=== PATIENT | male | born 1960 | race Two or more races ===

== ENCOUNTER → 2020-06-23 12:02 | Outpatient (BNVA) | payer OTHER, SELFPAY | PROVIDERS: Visit Provider Urology ==

== ENCOUNTER → 2020-12-22 14:16 | Outpatient (BNVA) | payer OTHER, SELFPAY | PROVIDERS: Visit Provider Urology ==

== ENCOUNTER → 2021-06-19 13:12 | Outpatient (BNVA) | payer OTHER, SELFPAY | PROVIDERS: PCP Family Medicine; Visit Provider Urology ==

== ENCOUNTER → 2022-07-04 10:36 | Outpatient (BNVA) | payer OTHER, SELFPAY | PROVIDERS: PCP Family Medicine; Visit Provider Urology | DX: R97.20 Elevated prostate specific antigen [PSA] (principal); N40.1 Benign prostatic hyperplasia with lower urinary tract symptoms; N13.8 Other obstructive and reflux uropathy | CPT/HCPCS: 51798 ==

== ENCOUNTER 2022-09-16 05:49 | Day surgery (SDC) | payer OTHER, SELFPAY ==
--- NOTE | 2022-09-13 12:01 | HO.ANESPROP2 ---
Documented by User: Shoshana Escalante NP 09/13/22 12:03 HPI - Anesthesia Eval Consult details Narrative: 62yo M for Targeted Prostate Needle Biopsy [facility] Active Problems Active Problems: All Active Problems (Updated 06/15/21 @ 09:25 by TERELL Espinosa) BPH w urinary obs/LUTS (Acute) Elevated PSA (Acute) Past Medical History Medical History Benign prostatic hyperplasia without lower urinary tract symptoms Elevated PSA Erectile dysfunction Hyperlipidemia Weak urinary stream Surgical History Surgical History (Updated 09/16/22 @ 06:04 by Emma Perez RN) History of surgery Hx of colonoscopy Social History Social History Patient Tobacco Use Status: Never used Tobacco Use of substances other than those prescribed or required for medical reasons: No Are you DNR?: No Advance Directives: No Advance Directives Information Provided: Yes Meds Allergies Allergy/AdvReac Type Severity Reaction Status Date / Time No Known Allergies Allergy Verified 09/16/22 06:03 Home Medications Medication Instructions Recorded Confirmed Last Taken Type atorvastatin 20 mg tablet 20 mg PO DAILY 06/23/20 09/16/22 Unknown History Exam Exam Date and Time: September 13, 2022 1201 Assessment and Plan Assessment Anesthesia Assessment: Chart Reviewed Documented by User: Sharonda Garner MD 09/16/22 07:05 [facility] Past Medical History Medical History Benign prostatic hyperplasia without lower urinary tract symptoms Elevated PSA Erectile dysfunction Hyperlipidemia Weak urinary stream Family History Family history of problems with anesthesia: No Surgical History Surgical History (Updated 09/16/22 @ 06:04 by Emma Perez, RN) History of surgery Hx of colonoscopy History of Problems with Anesthesia: No Social History Social History Patient Tobacco Use Status: Never used Tobacco Use of substances other than those prescribed or required for medical reasons: No Are you DNR?: No Advance Directives: No Advance Directives Information Provided: Yes Meds Allergies Allergy/AdvReac Type Severity Reaction Status Date / Time No Known Allergies Allergy Verified 09/16/22 06:03 Home Medications Medication Instructions Recorded Confirmed Last Taken Type atorvastatin 20 mg tablet 20 mg PO DAILY 06/23/20 09/16/22 Unknown History Exam Airway Mallampati Class: II (multiple caps) TM Dist: >3cm Neck ROM: Full Heart: rrr Lungs: cta Assessment and Plan Assessment Anesthesia Assessment: Anesthesia Plan Discussed Final Anesthetic Review Family History of Problems with Anesthesia: No History of Problems with Anesthesia: No NPO: Yes ASA Class: II Final Preanesthetic Review: No Changes in Pt Med Stat, Meds/Allgs Chart Reviewed and Consent Obtained/Reviewed Patient Risk: Intermediate Procedure Risk: Intermediate Anesthetic Plan Anesthetic Plan: GA Disposition: Standard PACU
[2022-09-16 06:04] VITALS: BMI 25.5
[2022-09-16 06:16] VITALS: BP 158/91; PULSE 48; RESP 15; TEMP 36.2; O2SAT 98
[2022-09-16] MEDS: Lactated Ringers 1,000 ML 100 ML IVCONT (06:24)
--- NOTE | 2022-09-16 08:36 | MHC.SHP ---
Pre-Procedural Eval Section A Date of Service: 09/16/22 The patient is an INPATIENT: No Changes since office visit: No Cold of Flu in the past 2 weeks, No New Medical Problems, No Changes in Medication and No Patient answered all questions The History & Physical has been completed within 30 days and I have reviewed it.: Yes Section B Chief Complaint: Elevated prostate specific antigen [PSA] Allergies: Allergies Allergy/AdvReac Type Severity Reaction Status Date / Time No Known Allergies Allergy Verified 09/16/22 06:03 Plan Diagnosis/Plan: Unchanged (MMRIri fusion ultrasound biopsy) I have reviewed the history and physical and performed a pertinent physical examination on my patient. No changes have occurred unless specified. Time Spent With Patient Time: Total time managing care of this patient today ____ minutes.
--- NOTE | 2022-09-16 08:37 | W.PM.OPN ---
Operative Note Operative Note Date of Service: 09/16/22 Narrative: Preoperative diagnosis: Elevated PSA Postoperative diagnosis: Elevated PSA Procedure: 1. transrectal ultrasound measurement of prostate 2. transrectal ultrasound-guided pudendal nerve block 3. MRI-US fusion image registration performed 3. transperineal ultrasound-guided prostate biopsy 18 core including targets Surgeon: Dr. Brayden Emerson Anesthetic: Sedation plus local Indications for procedure: Elevated PSA Procedure: After informed consent was verified, the patient was brought into the procedure area. Patient identity confirmed. Perioperative antibiotics confirmed. Safety pause time out performed. Anesthesia performed per protocol Ultrasound probe was placed per rectum Focalis software and hardware platform used An ultrasound-guided pudendal nerve block was performed using 10 cc of 1% lidocaine. 8 cc was placed at the base and 2 cc of the apex. Ultrasound placement was made with grid calibration for height and prostate diameter in both the transverse and longitudinal planes. Once gride calibration was confirmed ultrasound acquisition was performed in the transverse fashion. Three dimensional ultrasound model was created. The planned needle targeting based on prior acquisition of MRI imaging was overlaid on the ultrasound images and targets confirmed through ultrasound review. Based on pre -planning evaluation 18 targets had been identified. These included 3 targets of the PI-RADS 4 prostate apex identified lesion/s. He tolerated the procedure well. Was transferred to stable condition in the PACU. Printed instructions regarding antibiotic use and common side effects such as low-grade temperature, potential infection and bleeding were given Pathology: 18 prostate biopsy
[2022-09-16 08:56] VITALS: BP 142/96; PULSE 83; RESP 16; TEMP 36.3; O2SAT 99
[2022-09-16 09:01] VITALS: BP 133/85; PULSE 78; RESP 16; O2SAT 99
[2022-09-16 09:06] VITALS: BP 136/86; PULSE 70; RESP 16; O2SAT 99
[2022-09-16 09:10] VITALS: BP 130/87; PULSE 72; RESP 16; O2SAT 99
[2022-09-16 09:25] VITALS: BP 141/86; PULSE 65; RESP 16; TEMP 36.1; O2SAT 99
== END 2022-09-16 09:57 | disposition home or self-care (01) ==
PROVIDERS: PCP Family Medicine; Visit Provider Urology
PROC: (CPT 55700; principal; 2022-09-16 07:30)
DX: R97.20 Elevated prostate specific antigen [PSA] (principal); N40.1 Benign prostatic hyperplasia with lower urinary tract symptoms; R39.12 Poor urinary stream; N13.8 Other obstructive and reflux uropathy; N52.9 Male erectile dysfunction, unspecified; E78.5 Hyperlipidemia, unspecified; Z79.899 Other long term (current) drug therapy
CPT/HCPCS: 55700; 88305; 88344; J0330; J1100; J1956; J2250; J2405; J3010

== ENCOUNTER → 2022-10-01 15:32 | Outpatient (BNVA) | payer OTHER, SELFPAY | PROVIDERS: PCP Family Medicine; Visit Provider Urology ==

== ENCOUNTER 2023-03-14 09:08 | Outpatient (AMB) | payer OTHER, SELFPAY ==
--- NOTE | 2023-03-14 09:13 | MHC.OFFVIS ---
Intake Intake Visit Reasons: 2 month follow up Intake Note: Patient is Present for Follow Up Urology Medication:Finasteride, Tamsulosin Antibiotic Allergies: None Blood Thinners: None PVR: 0ML Compliants: No current complaints Allergies No Known Allergies Allergy (Verified 03/14/23 09:16) HPI HPI Comments History of Present Illness Details Cornelio Ramesh is a very pleasant male. He is a patient of Dr Reed. He is seen for the following urologic conditions - lower urinary tract symptoms - elevated PSA - Prostate Cancer PSA 03/20 6.0 Continues with surveillance Discussed targeted therapy Prostate Cancer - low volume, low to favorable intermediate risk Discussed biopsy results Potential candidate for targeted therapy Will review for planning 2 month follow-up PSA Brother has prostate cancer in active surveillance MRI ultrasound fusion biopsy results Histologic grade: ? [place] score: 3+4=7 (C 1.5) 3+3=6 (C 1.0) ? Number cores positive: 2 Total number of cores: 15 % of tissue involved: 2% of all tissue examined Periprostatic fat inv.: Not identified Seminal vesicle inv.: Not identified Perineural inv.: Not identified LVI: Not identified Elevated PSA/Abnormal USMAN: Has been taking finasteride daily He presents for further evaluation of elevated PSA. Current management is medication with 5AR. Laboratory investigations include a free and total PSA evaluation December 2011 3.9, September 2012 4.2, September 2013 4.8, March 2014 5.6, September 2014 4.5, - 05/14 6.8, 11/11 3.6, 06/15 5.8, 11/12 4.2, 06/16 3.5, 06/17 4.5 F 13% Exosome Score 24 (5% risk is 20) - 12/15 4.0 F 0.6 15%, 06/18 4.1, 12/16 3.7, 06/19 4.2 13%, 12/17 4.5, 07/18 5.5 Imaging investigations include a transrectal ultrasound Yes Date 11/2011 Prostate Volume 30 - 05/14 - Volume 44gm, BPH nodules a prostate MRI Yes 11/16 PI-RADS 4 - 7 mm right apical lateral peripheral zone lesion Individualized Prostate Cancer Risk Calculator 5-10% high risk. A TRUS biopsy has been performed and is negative 11/2011 PSA at biopsy 5.4 Vol 30cc [facility] Medical History Erectile dysfunction Hyperlipidemia Weak urinary stream Benign prostatic hyperplasia without lower urinary tract symptoms Elevated PSA Surgical History Hx of colonoscopy History of surgery Social History Patient Tobacco Use Status: Never used Tobacco Review of Systems Const Denies chills and Denies fever(s) Card Reports no additional complaints and Denies syncope Resp Denies cough GI Denies abdominal pain and Denies heartburn Reports as per HPI and Denies change in libido Neuro Denies syncope Psych Denies change in libido Endo Denies change in libido Physical Exam Const General: cooperative, healthy appearing, comfortable and no acute distress Orientation/consciousness: patient oriented x3 HEENT Face and sinus: Yes normal facial exam Mouth: moist mucous membranes Neck Neck: Yes normal visual inspection, Yes full ROM and Yes trachea midline Chest Chest palpation & inspection: normal inspection of the chest Resp Effort & Inspection: normal respiratory effort, able to speak in complete sentences and no respiratory distress GI Inspection: Yes normal to inspection Back/Spine/Pelvis Cervical Spine: normal cervical lordosis Thoracic/Lumbar Spine: thoracic and lumbar spine normal to inspection Skin General skin exam: no rashes or lesions noted Neuro General: patient oriented x3, gait normal, tone normal and moves all extremities Extrem General: Yes normal to inspection and Yes capillary refill normal Office Procedures Post Void Residual Post Residual Void Post Void Residual (PVR): 0 [id number] Void Residual by ultrasound Results AMB Urinalysis, Automated UA Leukoctes 0 Jayy/uL Last Edit by TERELL Espinosa on 03/14/23 09:26 UA Nitrite Negative Last Edit by TERELL Espinosa on 03/14/23 09:26 UA Urobilinogen 0.2 mg/dL Last Edit by TERELL Espinosa on 03/14/23 09:26 UA Protein 15 mg/dL Last Edit by TERELL Espinosa on 03/14/23 09:26 UA pH 6.0 Last Edit by TERELL Espinosa on 03/14/23 09:26 UA Blood 0 Edouard/uL Last Edit by TERELL Espinosa on 03/14/23 09:26 UA Specific [place] 1.020 Last Edit by MONROE EspinosaA on 03/14/23 09:26 UA Ketone Negative Last Edit by Shalonda Hernandez RMA on 03/14/23 09:26 UA Bilirubin 0 mg/dL Last Edit by Shalonda Hernandez, RMA on 03/14/23 09:26 UA Glucose 0 mg/dL Last Edit by MONROE EspinosaA on 03/14/23 09:26 Results Reviewed Results Reviewed: Laboratory Last Values Urine pH (Auto) 6.0 03/14/23 09:16 Specific [place] (Auto) 1.020 03/14/23 09:16 Urine Protein (Auto) 15 mg/dL 03/14/23 09:16 Glucose (UA)(Auto) 0 mg/dL 03/14/23 09:16 Urine Ketones (Auto) Negative 03/14/23 09:16 Urine Blood (Auto) 0 Edouard/uL 03/14/23 09:16 Urine Nitrite (Auto) Negative 03/14/23 09:16 Urine Bilirubin (Auto) 0 mg/dL 03/14/23 09:16 Urine Urobilinogen (Auto) 0.2 mg/dL 03/14/23 09:16 Leukocyte Esterase (Auto) 0 Jayy/uL 03/14/23 09:16 Assessment & Plan Assessment & Plan (1) Prostate cancer: Code(s): C61 - Malignant neoplasm of prostate (2) Elevated PSA: Code(s): R97.20 - Elevated prostate specific antigen [PSA] Plan Targeted cryotherapy Risks, benefits and alternatives to therapy were discussed. These include but are not limited to infection, bleeding, damage to local organs and tissues, need for further interventions. Anesthetic risks regarding cardiac arrhythmia, blood clots, and potential mortality were discussed. The patient understands the typical recovery time and the outpatient nature of the procedure. After consideration of these risks the patient gives full informed consent and they wish to move ahead with the procedure. Orders: Orders AMB Post Void Residual by ultrasound 03/14/23 N40.1 - Benign prostatic hyperplasia with lower urinary tract symptoms, N13.8 - Other obstructive and reflux uropathy AMB Urinalysis Automated 03/14/23 Z13.9 - Encounter for screening, unspecified Patient Instructions: Imaging studies, laboratory and physical exam results were discussed and reviewed in detail. No major barriers to patient understanding were identified. An opportunity to ask questions regarding the treatment plan was provided. All questions were answered. The patient expressed understanding and agreement with the above treatment plan. The patient is aware they should contact our office by phone for worsening of their current condition or the appearance of new urologic symptoms. Compliance is encouraged with any medications and followup testing that is ordered. It is a privilege to participate in the urologic care of your patient. If you have any questions or concerns regarding treatment for the above conditions, or other urologic issues, please do not hesitate to contact me. The office telephone contact is [phone]. This note is constructed using voice recognition software. While every effort has been made to ensure accuracy drama director errors may have been included. Yours sincerely, Dr Brayden Emerson MD, GALINA [facility] - Urology Providers of Expert, Compassionate Care for the Genitourinary System Coding Level of Care Code Est Pt Level 3 (86166) Diagnoses Prostate cancer C61 Elevated PSA R97.20 CPT Codes Post Residual Void - PVR CPT Code: 63432-[id number] Void Residual by ultrasound ([id number])
== END 2023-03-14 10:12 | disposition home or self-care (01) ==
PROVIDERS: PCP Family Medicine; Visit Provider Urology
DX: C61 Malignant neoplasm of prostate (principal); R97.20 Elevated prostate specific antigen [PSA]
CPT/HCPCS: 99213

== ENCOUNTER → 2023-03-14 09:08 | Outpatient (BNVA) | payer OTHER, SELFPAY | PROVIDERS: PCP Family Medicine; Visit Provider Urology | DX: N40.1 Benign prostatic hyperplasia with lower urinary tract symptoms (principal); N13.8 Other obstructive and reflux uropathy; R97.20 Elevated prostate specific antigen [PSA]; Z80.42 Family history of malignant neoplasm of prostate; Z79.899 Other long term (current) drug therapy | CPT/HCPCS: 51798; 81003 ==

== ENCOUNTER 2023-07-11 10:53 | Outpatient (AMB) | payer OTHER, SELFPAY ==
--- NOTE | 2023-07-11 10:58 | MHC.OFFVIS ---
Intake Visit Reasons: H&P Prostate cryotherapy Intake Note: Patient is Present for H&P Prostate Cryotherapy Urology Medication: Finasteride, Tamsulosin Antibiotic Allergies: none Blood Thinners: None Allergies No Known Allergies Allergy (Verified 07/11/23 11:02) HPI Comments Details: Cornelio Ramesh is a very pleasant male. He is a patient of Dr Reed. He is seen for the following urologic conditions - lower urinary tract symptoms - elevated PSA - Prostate Cancer PSA 03/20 6.0 Continues with surveillance Discussed targeted therapy Prostate Cancer - low volume, low to favorable intermediate risk Discussed biopsy results Potential candidate for targeted therapy Will review for planning 2 month follow-up PSA Brother has prostate cancer in active surveillance 09/17 MRI ultrasound fusion biopsy results Histologic grade: ? [place] score: 3+4=7 (C 1.5) 3+3=6 (C 1.0) ? Number cores positive: 2 Total number of cores: 15 % of tissue involved: 2% of all tissue examined Periprostatic fat inv.: Not identified Seminal vesicle inv.: Not identified Perineural inv.: Not identified LVI: Not identified Elevated PSA/Abnormal USMAN: Has been taking finasteride daily He presents for further evaluation of elevated PSA. Current management is medication with 5AR. Laboratory investigations include a free and total PSA evaluation December 2011 3.9, September 2012 4.2, September 2013 4.8, March 2014 5.6, September 2014 4.5, - 05/14 6.8, 11/11 3.6, 06/15 5.8, 11/12 4.2, 06/16 3.5, 06/17 4.5 F 13% Exosome Score 24 (5% risk is 20) - 12/15 4.0 F 0.6 15%, 06/18 4.1, 12/16 3.7, 06/19 4.2 13%, 12/17 4.5, 07/18 5.5, 03/20 6.0 Imaging investigations include a transrectal ultrasound Yes Date 11/2011 Prostate Volume 30 - 17 - Volume 44gm, BPH nodules a prostate MRI Yes 11/16 PI-RADS 4 - 7 mm right apical lateral peripheral zone lesion Individualized Prostate Cancer Risk Calculator 5-10% high risk. A TRUS biopsy has been performed and is negative 11/2011 PSA at biopsy 5.4 Vol 30cc [facility] Medical History Erectile dysfunction Hyperlipidemia Weak urinary stream Benign prostatic hyperplasia without lower urinary tract symptoms Elevated PSA Surgical History Hx of colonoscopy History of surgery Social History Patient Tobacco Use Status: Never used Tobacco Review of Systems Const Denies chills and Denies fever(s) Card Reports no additional complaints and Denies syncope Resp Denies cough GI Denies abdominal pain and Denies heartburn Reports as per HPI and Denies change in libido Neuro Denies syncope Psych Denies change in libido Endo Denies change in libido Physical Exam Const General: cooperative, healthy appearing, comfortable and no acute distress Orientation/consciousness: patient oriented x3 HEENT Face and sinus: Yes normal facial exam Mouth: moist mucous membranes Neck Neck: Yes normal visual inspection, Yes full ROM and Yes trachea midline Chest Chest palpation & inspection: normal inspection of the chest Resp Effort & Inspection: normal respiratory effort, able to speak in complete sentences and no respiratory distress GI Inspection: Yes normal to inspection Back/Spine/Pelvis Cervical Spine: normal cervical lordosis Thoracic/Lumbar Spine: thoracic and lumbar spine normal to inspection Skin General skin exam: no rashes or lesions noted Neuro General: patient oriented x3, gait normal, tone normal and moves all extremities Extrem General: Yes normal to inspection and Yes capillary refill normal Assessment & Plan Assessment & Plan (1) Prostate cancer: Code(s): C61 - Malignant neoplasm of prostate Category: Medical (2) BPH w urinary obs/LUTS: Code(s): N40.1 - Benign prostatic hyperplasia with lower urinary tract symptoms; N13.8 - Other obstructive and reflux uropathy Category: Medical Plan Three-month follow-up PSA, assessment for targeted intervention Orders: Orders Prostate Specific Antigen 3 Months C61 - Malignant neoplasm of prostate Patient Instructions: Imaging studies, laboratory and physical exam results were discussed and reviewed in detail. No major barriers to patient understanding were identified. An opportunity to ask questions regarding the treatment plan was provided. All questions were answered. The patient expressed understanding and agreement with the above treatment plan. The patient is aware they should contact our office by phone for worsening of their current condition or the appearance of new urologic symptoms. Compliance is encouraged with any medications and followup testing that is ordered. It is a privilege to participate in the urologic care of your patient. If you have any questions or concerns regarding treatment for the above conditions, or other urologic issues, please do not hesitate to contact me. The office telephone contact is [phone]. This note is constructed using voice recognition software. While every effort has been made to ensure accuracy automated manufacturing instructor errors may have been included. Yours sincerely, Dr Brayden Emerson MD, [facility] - Urology Providers of Expert, Compassionate Care for the Genitourinary System Coding Level of Care Code Est Pt Level 3 (02051) Diagnoses Prostate cancer C61 BPH w urinary obs/LUTS N40.1; N13.8
== END 2023-07-11 11:42 | disposition home or self-care (01) ==
PROVIDERS: PCP Family Medicine; Visit Provider Urology
DX: C61 Malignant neoplasm of prostate (principal); N40.1 Benign prostatic hyperplasia with lower urinary tract symptoms; N13.8 Other obstructive and reflux uropathy
CPT/HCPCS: 99499

== ENCOUNTER → 2023-07-11 10:53 | Outpatient (BNVA) | payer OTHER, SELFPAY | PROVIDERS: PCP Family Medicine; Visit Provider Urology ==

== ENCOUNTER 2023-10-10 10:42 | Outpatient (AMB) | payer OTHER, SELFPAY ==
--- NOTE | 2023-10-10 10:45 | MHC.OFFVIS ---
Intake Visit Reasons: 3m/PSA(4.44) Intake Note: Patient is Present for Telephone Follow Up For Urology Med: Finasteride, Tamsulosin Antibiotic Allergy:None Blood Thinner:None Allergies No Known Allergies Allergy (Verified 07/11/23 11:02) HPI Comments Details: Cornelio Ramesh is a very pleasant male. He is a patient of Dr Reed. He is seen for the following urologic conditions - lower urinary tract symptoms - elevated PSA - Prostate Cancer Telemedicine Evaluation 15 min Consultation [employer] [place] [facility] Planning for targeted therapy Order updated MRI Prostate Cancer - low volume, low to favorable intermediate risk 09/17 Brother has prostate cancer in active surveillance 09/17 MRI ultrasound fusion biopsy results Histologic grade: ? [place] score: 3+4=7 (C 1.5) 3+3=6 (C 1.0) ? Number cores positive: 2 Total number of cores: 15 % of tissue involved: 2% of all tissue examined Periprostatic fat inv.: Not identified Seminal vesicle inv.: Not identified Perineural inv.: Not identified LVI: Not identified Elevated PSA/Abnormal USMAN: Has been taking finasteride daily He presents for further evaluation of elevated PSA. Current management is medication with 5AR. Laboratory investigations include a free and total PSA evaluation December 2011 3.9, September 2012 4.2, September 2013 4.8, March 2014 5.6, September 2014 4.5, - 05/14 6.8, 11/11 3.6, 06/15 5.8, 11/12 4.2, 06/16 3.5, 06/17 4.5 F 13% Exosome Score 24 (5% risk is 20) - 12/15 4.0 F 0.6 15%, 06/18 4.1, 12/16 3.7, 06/19 4.2 13%, 12/17 4.5, 07/18 5.5, 03/20 6.0 Imaging investigations include a transrectal ultrasound Yes Date 11/2011 Prostate Volume 30 - 05/14 - Volume 44gm, BPH nodules a prostate MRI Yes 11/16 PI-RADS 4 - 7 mm right apical lateral peripheral zone lesion Individualized Prostate Cancer Risk Calculator 5-10% high risk. A TRUS biopsy has been performed and is negative 11/2011 PSA at biopsy 5.4 Vol 30cc [facility] Medical History Erectile dysfunction Hyperlipidemia Weak urinary stream Benign prostatic hyperplasia without lower urinary tract symptoms Elevated PSA Surgical History Hx of colonoscopy History of surgery Social History Patient Tobacco Use Status: Never used Tobacco Review of Systems Const All systems reviewed & are unremarkable except as noted in HPI and below Reports no additional complaints Resp Reports no additional complaints GI Reports no additional complaints Reports as per HPI Musc Reports no additional complaints Physical Exam Telemedicine evaluation Appropriate responses Regular breathing rate and rhythm HEENT Head: Yes normal to inspection Ears: hearing grossly normal bilaterally Eyes General: appearance normal, both eyes and all related structures Neck Neck: Yes normal visual inspection Chest Chest palpation & inspection: normal inspection of the chest Resp Effort & Inspection: normal respiratory effort and able to speak in complete sentences Telehealth Telehealth Telehealth Platform: [employer] Location of provider rendering services: practice address Location of patient: address on file Patient Identification confirmed using: Name, : Yes Telehealth method: video Patient verbally consented to treatment: Yes Patient verbally consented to billing insurance company: Yes Patient informed of any privacy concerns related to visit: Yes Minutes spent on Phone/Video with Pt.: 15 Assessment & Plan Assessment & Plan (1) Prostate cancer: Code(s): C61 - Malignant neoplasm of prostate Category: Medical (2) Elevated PSA: Code(s): R97.20 - Elevated prostate specific antigen [PSA] Category: Medical Plan Six-month follow-up PSA Patient Instructions: Imaging studies, laboratory and physical exam results were discussed and reviewed in detail. No major barriers to patient understanding were identified. An opportunity to ask questions regarding the treatment plan was provided. All questions were answered. The patient expressed understanding and agreement with the above treatment plan. The patient is aware they should contact our office by phone for worsening of their current condition or the appearance of new urologic symptoms. Compliance is encouraged with any medications and followup testing that is ordered. It is a privilege to participate in the urologic care of your patient. If you have any questions or concerns regarding treatment for the above conditions, or other urologic issues, please do not hesitate to contact me. The office telephone contact is [phone]. This note is constructed using voice recognition software. While every effort has been made to ensure accuracy two way radio technician errors may have been included. Yours sincerely, Dr Brayden Emerson MD, [facility] - Urology Providers of Expert, Compassionate Care for the Genitourinary System Coding Level of Care Code Tele Est Pt Level 3 (57041) Diagnoses Prostate cancer C61 Elevated PSA R97.20
== END 2023-10-10 16:30 | disposition left against medical advice (07) ==
LOC: HO.HUSH 10:42
PROVIDERS: PCP Family Medicine; Visit Provider Urology
DX: C61 Malignant neoplasm of prostate (principal); R97.20 Elevated prostate specific antigen [PSA]
CPT/HCPCS: 99499

== ENCOUNTER → 2023-10-10 10:42 | Outpatient (BNVA) | payer OTHER, SELFPAY | PROVIDERS: PCP Family Medicine; Visit Provider Urology ==

== ENCOUNTER 2023-10-21 14:40 | Outpatient (AMB) | payer OTHER, SELFPAY ==
--- NOTE | 2023-10-21 14:41 | A.OFFVIS_ITS ---
Intake Visit Reasons: Prostate cancer- follow up Intake Note: Patient is Present for Telephone Follow Up Urology Med:Tamsulosin, Finasteride Antibiotic Allergy:None Blood Thinner:None Allergies No Known Allergies Allergy (Verified 07/11/23 11:02) Medication List - Last Reconciled 10/21/23 by Brayden Emerson MD atorvastatin 20 mg PO DAILY finasteride 5 mg PO DAILY 90 days tamsulosin 0.4 mg PO BEDTIME 90 days HPI Comments Details: Cornelio Ramesh is a very pleasant male. He is a patient of Dr Reed. He is seen for the following urologic conditions - lower urinary tract symptoms - elevated PSA - Prostate Cancer Telemedicine Evaluation 15 min Consultation [employer] [place]iley Video Planning for targeted therapy Needs updated prostate MRI Prostate Cancer - low volume, low to favorable intermediate risk 09/17 Brother has prostate cancer in active surveillance 09/17 MRI ultrasound fusion biopsy results Histologic grade: ? [place] score: 3+4=7 (C 1.5) 3+3=6 (C 1.0) ? Number cores positive: 2 Total number of cores: 15 % of tissue involved: 2% of all tissue examined Periprostatic fat inv.: Not identified Seminal vesicle inv.: Not identified Perineural inv.: Not identified LVI: Not identified Elevated PSA/Abnormal USMAN: Has been taking finasteride daily He presents for further evaluation of elevated PSA. Current management is medication with 5AR. Laboratory investigations include a free and total PSA evaluation December 2011 3.9, September 2012 4.2, September 2013 4.8, March 2014 5.6, September 2014 4.5, - 05/14 6.8, 11/11 3.6, 06/15 5.8, 11/12 4.2, 06/16 3.5, 06/17 4.5 F 13% Exosome Score 24 (5% risk is 20) - 12/15 4.0 F 0.6 15%, 06/18 4.1, 12/16 3.7, 06/19 4.2 13%, 12/17 4.5, 07/18 5.5, 03/20 6.0 Imaging investigations include a transrectal ultrasound Yes Date 11/2011 Prostate Volume 30 - 05/14 - Volume 44gm, BPH nodules a prostate MRI Yes 11/16 PI-RADS 4 - 7 mm right apical lateral peripheral zone lesion Individualized Prostate Cancer Risk Calculator 5-10% high risk. A TRUS biopsy has been performed and is negative 11/2011 PSA at biopsy 5.4 Vol 30cc [facility] Medical History Erectile dysfunction Hyperlipidemia Weak urinary stream Benign prostatic hyperplasia without lower urinary tract symptoms Elevated PSA Surgical History Hx of colonoscopy History of surgery Social History Patient Tobacco Use Status: Never used Tobacco Review of Systems Const All systems reviewed & are unremarkable except as noted in HPI and below Reports no additional complaints Resp Reports no additional complaints GI Reports no additional complaints Reports as per HPI Musc Reports no additional complaints Physical Exam Telemedicine evaluation Appropriate responses Regular breathing rate and rhythm HEENT Head: Yes normal to inspection Ears: hearing grossly normal bilaterally Eyes General: appearance normal, both eyes and all related structures Neck Neck: Yes normal visual inspection Chest Chest palpation & inspection: normal inspection of the chest Resp Effort & Inspection: normal respiratory effort and able to speak in complete sentences Telehealth Telehealth Telehealth Platform: [employer] Location of provider rendering services: practice address Location of patient: address on file Patient Identification confirmed using: Name, : Yes Telehealth method: video Patient verbally consented to treatment: Yes Patient verbally consented to billing insurance company: Yes Patient informed of any privacy concerns related to visit: Yes Minutes spent on Phone/Video with Pt.: 15 Assessment & Plan Assessment & Plan (1) Prostate cancer: Code(s): C61 - Malignant neoplasm of prostate Category: Medical Plan Repeat prostate MRI Plan prostate intervention Orders: Orders MR pelvis wo/w con Today C61 - Malignant neoplasm of prostate Patient Instructions: Imaging studies, laboratory and physical exam results were discussed and reviewed in detail. No major barriers to patient understanding were identified. An opportunity to ask questions regarding the treatment plan was provided. All questions were answered. The patient expressed understanding and agreement with the above treatment plan. The patient is aware they should contact our office by phone for worsening of their current condition or the appearance of new urologic symptoms. Compliance is encouraged with any medications and followup testing that is ordered. It is a privilege to participate in the urologic care of your patient. If you have any questions or concerns regarding treatment for the above conditions, or other urologic issues, please do not hesitate to contact me. The office telephone contact is [phone]. This note is constructed using voice recognition software. While every effort has been made to ensure accuracy hi teacher errors may have been included. Yours sincerely, Dr Brayden Emerson MD, [facility] - Urology Providers of Expert, Compassionate Care for the Genitourinary System Coding Level of Care Code Tele Est Pt Level 3 (94978) Diagnoses Prostate cancer C61
== END 2023-10-21 15:09 | disposition home or self-care (01) ==
LOC: HO.HUSH 14:40
PROVIDERS: PCP Family Medicine; Visit Provider Urology
DX: C61 Malignant neoplasm of prostate (principal)
CPT/HCPCS: 99213

== ENCOUNTER → 2023-10-21 14:40 | Outpatient (BNVA) | payer OTHER, SELFPAY | PROVIDERS: PCP Family Medicine; Visit Provider Urology ==

== ENCOUNTER 2024-02-05 13:07 | Outpatient (AMB) | payer OTHER, SELFPAY ==
--- NOTE | 2024-02-05 13:08 | A.OFFVIS_ITS ---
Intake Visit Reasons: Discuss plan after surgical denial Intake Note: Patient is Present for Telephone Follow Up Discussion on Plan of care after Insurance denial of surgery Urology Med: Tamsulosin, Finasteride Antibiotic Allergy: None Blood Thinner: None [facility] [employer] Experience Strategy Required: No Accompanied by: Self / Same As Patient Allergies No Known Allergies Allergy (Verified 02/05/24 13:11) HPI Comments Details: Cornelio Ramesh is a very pleasant male. He is a patient of Dr Reed. He is seen for the following urologic conditions - lower urinary tract symptoms - elevated PSA - Prostate Cancer Telemedicine Evaluation 15 min Consultation [employer] Hailey Video 11/18 prostate MRI 9 mm right apical lateral peripheral zone lesion PI-RADS 4 Prostate Cancer - low volume, low to favorable intermediate risk 09/17 Brother has prostate cancer in active surveillance 09/17 MRI ultrasound fusion biopsy results Histologic grade: ? [place] score: 3+4=7 (C 1.5) 3+3=6 (C 1.0) ? Number cores positive: 2 Total number of cores: 15 % of tissue involved: 2% of all tissue examined Periprostatic fat inv.: Not identified Seminal vesicle inv.: Not identified Perineural inv.: Not identified LVI: Not identified Elevated PSA/Abnormal USMAN: Has been taking finasteride daily He presents for further evaluation of elevated PSA. Current management is medication with 5AR. Laboratory investigations include a free and total PSA evaluation December 2011 3.9, September 2012 4.2, September 2013 4.8, March 2014 5.6, September 2014 4.5, - 05/14 6.8, 11/11 3.6, 06/15 5.8, 11/12 4.2, 06/16 3.5, 06/17 4.5 F 13% Exosome Score 24 (5% risk is 20) - 12/15 4.0 F 0.6 15%, 06/18 4.1, 12/16 3.7, 06/19 4.2 13%, 12/17 4.5, 07/18 5.5, 03/20 6.0 Imaging investigations include a transrectal ultrasound Yes Date 11/2011 Prostate Volume 30 - 05/14 - Volume 44gm, BPH nodules a prostate MRI Yes 11/16 PI-RADS 4 - 7 mm right apical lateral peripheral zone lesion Individualized Prostate Cancer Risk Calculator 5-10% high risk. A TRUS biopsy has been performed and is negative 11/2011 PSA at biopsy 5.4 Vol 30cc [facility] Medical History Erectile dysfunction Hyperlipidemia Weak urinary stream Benign prostatic hyperplasia without lower urinary tract symptoms Elevated PSA Surgical History Hx of colonoscopy History of surgery Social History Patient Tobacco Use Status: Never used Tobacco Review of Systems Const All systems reviewed & are unremarkable except as noted in HPI and below Reports no additional complaints Resp Reports no additional complaints GI Reports no additional complaints Reports as per HPI Musc Reports no additional complaints Physical Exam Telemedicine evaluation Appropriate responses Regular breathing rate and rhythm HEENT Head: Yes normal to inspection Ears: hearing grossly normal bilaterally Eyes General: appearance normal, both eyes and all related structures Neck Neck: Yes normal visual inspection Chest Chest palpation & inspection: normal inspection of the chest Resp Effort & Inspection: normal respiratory effort and able to speak in complete sentences Telehealth Telehealth Telehealth Platform: [employer] Location of provider rendering services: practice address Location of patient: address on file Patient Identification confirmed using: Name, : Yes Telehealth method: video Patient verbally consented to treatment: Yes Patient verbally consented to billing insurance company: Yes Patient informed of any privacy concerns related to visit: Yes Minutes spent on Phone/Video with Pt.: 15 Assessment & Plan Assessment & Plan (1) Prostate cancer: Code(s): C61 - Malignant neoplasm of prostate Category: Medical (2) BPH w urinary obs/LUTS: Code(s): N40.1 - Benign prostatic hyperplasia with lower urinary tract symptoms; N13.8 - Other obstructive and reflux uropathy Category: Medical Plan Six-month follow-up labs Patient Instructions: Imaging studies, laboratory and physical exam results were discussed and reviewed in detail. No major barriers to patient understanding were identified. An opportunity to ask questions regarding the treatment plan was provided. All questions were answered. The patient expressed understanding and agreement with the above treatment plan. The patient is aware they should contact our office by phone for worsening of their current condition or the appearance of new urologic symptoms. Compliance is encouraged with any medications and followup testing that is ordered. It is a privilege to participate in the urologic care of your patient. If you have any questions or concerns regarding treatment for the above conditions, or other urologic issues, please do not hesitate to contact me. The office telephone contact is [phone]. This note is constructed using voice recognition software. While every effort has been made to ensure accuracy bottling supervisor errors may have been included. Yours sincerely, Dr Brayden Emerson MD, [facility] - Urology Providers of Expert, Compassionate Care for the Genitourinary System Coding Level of Care Code Tele Est Pt Level 3 (24075) Diagnoses Prostate cancer C61 BPH w urinary obs/LUTS N40.1; N13.8
== END 2024-02-05 13:46 | disposition home or self-care (01) ==
LOC: HO.HUSH 13:07
PROVIDERS: PCP Family Medicine; Visit Provider Urology
DX: C61 Malignant neoplasm of prostate (principal); N40.1 Benign prostatic hyperplasia with lower urinary tract symptoms; N13.8 Other obstructive and reflux uropathy
CPT/HCPCS: 99213

== ENCOUNTER → 2024-02-05 13:07 | Outpatient (BNVA) | payer OTHER, SELFPAY | PROVIDERS: PCP Family Medicine; Visit Provider Urology ==

== ENCOUNTER 2024-08-04 11:37 | Outpatient (AMB) | payer OTHER, SELFPAY ==
--- NOTE | 2024-08-04 11:44 | A.OFFVIS_ITS ---
Intake Visit Reasons: 6m/PSA(PSA?) Intake Note: Patient is present for 6M/PSA Urology Medication:TAMSULOSIN,FINASTERIDE Antibiotic Allergy:NONE Blood Thinner:NONE Awning Hanger Helper Required: No Allergies No Known Allergies Allergy (Verified 08/04/24 11:44) HPI Comments Details: Cornelio Ramesh is a very pleasant male. He is a patient of Dr Reed. He is seen for the following urologic conditions - lower urinary tract symptoms - elevated PSA - Prostate Cancer PSA 7.7 was on every other month finasteride He start daily finasteride 11/18 prostate MRI 9 mm right apical lateral peripheral zone lesion PI-RADS 4 Prostate Cancer - low volume, low to favorable intermediate risk 09/17 Brother has prostate cancer in active surveillance 09/17 MRI ultrasound fusion biopsy results Histologic grade: ? [place] score: 3+4=7 (C 1.5) 3+3=6 (C 1.0) ? Number cores positive: 2 Total number of cores: 15 % of tissue involved: 2% of all tissue examined Periprostatic fat inv.: Not identified Seminal vesicle inv.: Not identified Perineural inv.: Not identified LVI: Not identified Elevated PSA/Abnormal USMAN: Has been taking finasteride daily He presents for further evaluation of elevated PSA. Current management is medication with 5AR. Laboratory investigations include a free and total PSA evaluation Dec 3.9, September 2012 4.2, September 2013 4.8, March 2014 5.6, September 2014 4.5, - 05/14 6.8, 11/11 3.6, 06/15 5.8, 11/12 4.2, 06/16 3.5, 06/17 4.5 F 13% Exosome Score 24 (5% risk is 20) - 12/15 4.0 F 0.6 15%, 06/18 4.1, 12/16 3.7, 06/19 4.2 13%, 12/17 4.5, 07/18 5.5, 03/20 6.0 Imaging investigations include a transrectal ultrasound Yes Date 11/2011 Prostate Volume 30 - 05/14 - Volume 44gm, BPH nodules a prostate MRI Yes 11/16 PI-RADS 4 - 7 mm right apical lateral peripheral zone lesion Individualized Prostate Cancer Risk Calculator 5-10% high risk. A TRUS biopsy has been performed and is negative 11/2011 PSA at biopsy 5.4 Vol 30cc [facility] Medical History Erectile dysfunction Hyperlipidemia Weak urinary stream Benign prostatic hyperplasia without lower urinary tract symptoms Elevated PSA Surgical History Hx of colonoscopy History of surgery Social History Patient Tobacco Use Status: Never used Tobacco Assessment & Plan Assessment & Plan Orders: Orders AMB Urinalysis Automated Today Z13.9 - Encounter for screening, unspecified Prostate Specific Antigen 4 Months C61 - Malignant neoplasm of prostate Coding
== END 2024-08-04 12:20 | disposition home or self-care (01) ==
LOC: HO.HUSH 11:39
PROVIDERS: PCP Family Medicine; Visit Provider Urology
DX: Z13.9 Encounter for screening, unspecified (principal)

== ENCOUNTER → 2024-08-04 11:37 | Outpatient (BNVA) | payer OTHER, SELFPAY | PROVIDERS: PCP Family Medicine; Visit Provider Urology | DX: N40.1 Benign prostatic hyperplasia with lower urinary tract symptoms (principal); N13.8 Other obstructive and reflux uropathy; C61 Malignant neoplasm of prostate | CPT/HCPCS: 81003 ==

== ENCOUNTER 2025-01-06 11:02 | Outpatient (AMB) | payer OTHER, SELFPAY ==
--- NOTE | 2025-01-06 11:36 | MHC.OFFVIS ---
Intake Visit Reasons: follow up/PSA Intake Note: patient presents today for: follow up/PSA urology medications: finsateride, tamsulosin blood thinners: none labs done 12/28/24: PSA 7.3 today's PVR: 28mls Electrolytic De Scaler Required: No Accompanied by: Self / Same As Patient Allergies No Known Allergies Allergy (Verified 01/06/25 11:37) HPI Comments Details: Cornelio Ramesh is a very pleasant male. He is a patient of Dr Reed. He is seen for the following urologic conditions - lower urinary tract symptoms - elevated PSA - Prostate Cancer PSA 7.3 11/18 prostate MRI 9 mm right apical lateral peripheral zone lesion PI-RADS 4 Prostate Cancer - low volume, low to favorable intermediate risk 09/17 Brother has prostate cancer in active surveillance 09/17 MRI ultrasound fusion biopsy results Histologic grade: ? [place] score: 3+4=7 (C 1.5) 3+3=6 (C 1.0) ? Number cores positive: 2 Total number of cores: 15 % of tissue involved: 2% of all tissue examined Periprostatic fat inv.: Not identified Seminal vesicle inv.: Not identified Perineural inv.: Not identified LVI: Not identified Elevated PSA/Abnormal USMAN: Has been taking finasteride daily He presents for further evaluation of elevated PSA. Current management is medication with 5AR. Laboratory investigations include a free and total PSA evaluation December 2011 3.9, September 2012 4.2, September 2013 4.8, March 2014 5.6, September 2014 4.5, - 05/14 6.8, 11/11 3.6, 06/15 5.8, 11/12 4.2, 06/16 3.5, 06/17 4.5 F 13% Exosome Score 24 (5% risk is 20) - 12/15 4.0 F 0.6 15%, 06/18 4.1, 12/16 3.7, 06/19 4.2 13%, 12/17 4.5, 07/18 5.5, 03/20 6.0 Imaging investigations include a transrectal ultrasound Yes Date 11/2011 Prostate Volume 30 - 05/14 - Volume 44gm, BPH nodules a prostate MRI Yes 11/16 PI-RADS 4 - 7 mm right apical lateral peripheral zone lesion Individualized Prostate Cancer Risk Calculator 5-10% high risk. A TRUS biopsy has been performed and is negative 11/2011 PSA at biopsy 5.4 Vol 30cc [facility] Medical History Erectile dysfunction Hyperlipidemia Weak urinary stream Benign prostatic hyperplasia without lower urinary tract symptoms Elevated PSA Surgical History Hx of colonoscopy History of surgery Social History Patient Tobacco Use Status: Never used Tobacco Office Procedures Post Void Residual Post Residual Void Post Void Residual (PVR): 28 [id number] Void Residual by ultrasound Results AMB Urinalysis, Automated UA Leukoctes 0 Jayy/uL Last Edit by GE Iraheta on 01/06/25 15:52 UA Nitrite Negative Last Edit by GE Iraheta on 01/06/25 15:52 UA Urobilinogen 0.2 mg/dL Last Edit by GE Iraheta on 01/06/25 15:52 UA Protein 0 mg/dL Last Edit by GE Iraheta on 01/06/25 15:52 UA pH 6.5 Last Edit by GE Iraheta on 01/06/25 15:52 UA Blood 0 Edouard/uL Last Edit by GE Iraheta on 01/06/25 15:52 UA Specific [place] 1.015 Last Edit by GE Iraheta on 01/06/25 15:52 UA Ketone Negative Last Edit by GE Iraheta on 01/06/25 15:52 UA Bilirubin 0 mg/dL Last Edit by GE Iraheta on 01/06/25 15:52 UA Glucose 0 mg/dL Last Edit by GE Iraheta on 01/06/25 15:52 Assessment & Plan Assessment & Plan Orders: Orders PSA,Total (Free>4and<10) 4 Months C61 - Malignant neoplasm of prostate AMB Post Void Residual by ultrasound Today N13.8 - Other obstructive and reflux uropathy, N40.1 - Benign prostatic hyperplasia with lower urinary tract symptoms AMB Urinalysis Automated Today Z13.9 - Encounter for screening, unspecified Coding CPT Codes Post Residual Void - PVR CPT Code: 50989-[id number] Void Residual by ultrasound ([id number])
== END 2025-01-06 12:22 | disposition home or self-care (01) ==
LOC: HO.HUSH 11:03
PROVIDERS: PCP Family Medicine; Visit Provider Urology
DX: Z13.9 Encounter for screening, unspecified (principal)

== ENCOUNTER → 2025-01-06 11:02 | Outpatient (BNVA) | payer OTHER, SELFPAY | PROVIDERS: PCP Family Medicine; Visit Provider Urology | DX: N40.1 Benign prostatic hyperplasia with lower urinary tract symptoms (principal); N13.8 Other obstructive and reflux uropathy; R97.20 Elevated prostate specific antigen [PSA]; C61 Malignant neoplasm of prostate; Z13.9 Encounter for screening, unspecified | CPT/HCPCS: 51798; 81003 ==

== ENCOUNTER 2025-03-14 11:18 | Outpatient (AMB) | payer MEDICARE, SELFPAY ==
--- NOTE | 2025-03-14 11:28 | MHC.OFFWIV ---
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 Itchy, red rash on area where tick bite is. Patient Tobacco Use Status: Never used Tobacco Allergies No Known Allergies Allergy (Verified 03/14/25 11:28) Do you need a note to return to daycare/school/sports/work: No HPI HPI Comments History of Present Illness Details History - The patient is a 64-year-old male presenting with concerns following a tick bite. - The patient experienced a tick bite three weeks ago, with the tick not engorged upon removal. - He states that he thinks that the tick was on for 3 days. - The area initially cleared but later became itchy, prompting self-treatment with amoxicillin, which reduced the itching. - The patient was using Amoxicillin from a family member, 3 times a day since Friday. - The patient denies systemic symptoms such as fever or joint pain. - Reports elevated blood pressure, with a recent high reading of 194 mmHg, attributed to anxiety and pain from a finger laceration. - He denies CP, SOB, fatigue, myalgias, or other rashes. Physical Exam General: Cooperative, healthy appearing, comfortable, no acute distress and well developed Orientation: Patient oriented x3 Limitations: No limitations Head: Normal to inspection Respiratory: Normal respiratory effort and able to speak in complete sentences. Cardiac: RRR. No m/r/g noted. Skin: Area of erythema noted on the abdomen. No induration noted. No discharge or fluctuance noted. No streaking noted. Neuro: Patient oriented x3 Patient was informed and verbally consented to the use of an ambient scribe for clinic note documentation during this visit. [facility] Medical History Erectile dysfunction Hyperlipidemia Weak urinary stream Benign prostatic hyperplasia without lower urinary tract symptoms Elevated PSA Surgical History Hx of colonoscopy History of surgery Social History Patient Tobacco Use Status: Never used Tobacco Review of Systems Const All systems reviewed & are unremarkable except as noted in HPI and below Physical Exam Vital Signs: Last Vital Signs Temp 97.8 F 03/14/25 11:29 Pulse 71 03/14/25 11:29 BP 172/100 H 03/14/25 11:29 Pulse Ox 97 03/14/25 11:29 Oxygen Delivery Method Room Air 03/14/25 11:29 BMI result Body Mass Index 26.3 Assessment & Plan Assessment & Plan (1) Tick bite: Code(s): W57.XXXA - Bitten or stung by nonvenomous insect and other nonvenomous arthropods, initial encounter Qualifiers: Encounter type: initial encounter Site of tick bite: abdominal wall Qualified Code(s): S30.861A - Insect bite (nonvenomous) of abdominal wall, initial encounter; W57.XXXA - Bitten or stung by nonvenomous insect and other nonvenomous arthropods, initial encounter Plan Most likely cellulitis from a tick or insect bite Does not look like a Bullseye rash Plan - Start doxycycline for suspected cellulitis post-tick bite, as the patient is not allergic. - Monitor for Lyme disease symptoms, including bullseye rash and joint pain. - Regularly check blood pressure and address anxiety and pain as contributing factors. - tylenol or motrin as needed - offered him a Lyme titer and he declined at this time - watch for signs of infection such as fever, discharge, warmth, etc - follow up with PCP Medications: New doxycycline hyclate 100 mg PO BID PRN 20 tabs 0RF lyme disease 10 days Coding Level of Care Code Est Pt Level 3 (50741) Diagnoses Tick bite of abdominal wall, initial encounter S30.861A; W57.XXXA Encounter type: initial encounter Site of tick bite: abdominal wall
[2025-03-14 11:29] VITALS: BP 172/100; PULSE 71; TEMP 36.6; O2SAT 97; BMI 26.3
== END 2025-03-14 12:38 | disposition home or self-care (01) ==
PROVIDERS: PCP Family Medicine; Visit Provider Physician Assistant Medical
DX: S30.861A Insect bite (nonvenomous) of abdominal wall, initial encounter (principal); W57.XXXA Bitten or stung by nonvenomous insect and other nonvenomous arthropods, initial encounter

== ENCOUNTER → 2025-03-14 11:18 | Outpatient (BNVA) | payer MEDICARE, SELFPAY | PROVIDERS: PCP Family Medicine; Visit Provider Physician Assistant Medical | DX: S30.861A Insect bite (nonvenomous) of abdominal wall, initial encounter (principal); W57.XXXA Bitten or stung by nonvenomous insect and other nonvenomous arthropods, initial encounter; Y93.9 Activity, unspecified; Y92.9 Unspecified place or not applicable; Y99.9 Unspecified external cause status | CPT/HCPCS: 99212 ==

== ENCOUNTER 2025-04-07 10:16 | Outpatient (AMB) | payer MEDICARE, SELFPAY ==
--- NOTE | 2025-04-07 10:25 | A.OFFPC_ITS ---
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 Saw Dr Ricketts at [facility] Intake Coordinator Required: No Allergies No Known Allergies Allergy (Verified 04/07/25 10:26) Medication List - Last Reconciled 04/07/25 by Faith Olivier PA-C atorvastatin 20 mg PO DAILY finasteride 5 mg PO DAILY 90 days metoprolol succinate ER 25 mg PO DAILY tamsulosin 0.4 mg PO BEDTIME 90 days Tobacco use date assessed: 04/07/25 Fall risk assessment: 1 Fall in past year Last assessed Fall Risk: 04/07/25 Dental Screening Dental Screen Date: 04/07/25 Did you have a dental visit in the last 12 months?: Yes Did you have a dental problem in the last 6 months where you did not have access to dental care?: No Was dental information given to patient?: Patient has dentist HPI RETAIL SELLING SPECIALIST CPE/colonoscopy HPI Details Pt is a 65 y/o male who presents today to on license of [facility] care. He is transferring from [facility] [employer]. He has a significant past medical history of prostate cancer and hyperlipidemia. CV: bp is elevated today, it has been running high at home. He has been feeling a pounding in the chest that will last for < 30 seconds. It does not feel like it is skipping beats but is beating hard. It does cause some discomfort. No sob, dizzines, leg swelling. No exertional sx. He has noted it 3-4 x a day x the last few months. Becoming more frequent. Father had 2 MIs (one at the age of 30 and then later). ID: Did have a couple recent tick bites. Was treated with doxycycline. No symptoms. Uro: Follows with urology here. Up-to-date on office visits Colonoscopy: Overdue by 2 years. History of colon polyps and was supposed to have his colonoscopy repeated 2 years ago. He was told to follow up every 3 years. No blood in the stool. No abdominal pain [facility] Medical History Erectile dysfunction Hyperlipidemia Weak urinary stream Benign prostatic hyperplasia without lower urinary tract symptoms Elevated PSA Surgical History Hx of colonoscopy History of surgery Family History (Updated 04/07/25 @ 10:37 by Keyla Jack CMA) Father HTN (hypertension) High cholesterol Social History Housing: House Patient Tobacco Use Status: Never used Tobacco e-Cigarette/Vaping Use: Never Used Second Hand Smoke Exposure: No service: Yes Current occupational status: retired Cognitive needs: No Hearing needs: No Vision needs: No Questionnaire PHQ-9 Over the last 2 weeks, how often have you been bothered by any of the following problems? 1. Little interest or pleasure in doing things: not at all 2. Feeling down, depressed, or hopeless: not at all 3. Trouble falling or staying asleep, or sleeping too much: not at all 4. Feeling tired or having little energy: not at all 5. Poor appetite or overeating: not at all 6. Feeling bad about yourself - or that you are a failure or have let yourself or your family down: not at all 7. Trouble concentrating on things, such as reading the newspaper or watching television: not at all 8. Moving or speaking so slowly that other people could have noticed. Or the opposite - being so fidgety or restless that you have been moving around a lot more than usual: not at all 9. Thoughts that you would be better off or of hurting yourself in some way: not at all Total score: 0 Depression Screening Interpretation: Negative Depression Screening Done: Yes 95934 - PHQ-9 Billing: Yes Source: Developed by Drs. Hay Varela, Leonora Parsons, Viktor Giraldo and colleagues, with an educational sebastian from [employer]. Thrive Questionnaire Date Thrive assessed: 03/31/25 I am a: Patient What is your living situation today?: I have a steady place to live Within the past 12 months, did the food you bought not last and you didn't have the money to get more?: Never true Within the past 12 months, did you worry whether your food would run out before you got money to buy more?: Never true Do you have trouble paying for medicines?: No Do you have trouble getting transportation to medical appointments?: No Do you have trouble paying your heating and electricity bill?: No Do you have trouble taking care of your child, family member or friend?: No Do you have trouble with day-to-day activities such as bathing, preparing meals, shopping, managing finances, etc.?: No Are you currently unemployed and looking for a job?: No Are you interested in more education?: No Please select the resources that you would like help with: None Currently or been in a relationship where the following occur: No concerns reported THRIVE Score: 0 AUDIT C Alcohol Use Questionnaire (AUDIT-C) 1. How often do you have a drink containing alcohol?: Monthly or less 2. How many drinks containing alcohol do you have on a typical day when you are drinking?: 1 or 2 3. How often do you have six or more drinks on one occasion?: Never Total Score: 1 ALEXIS-7 AMB Questionnaire ALEXIS-7 Feeling nervous, anxious, or on edge: 0 = Not at all Not being able to stop or control worryin = Not at all Worrying too much about different things: 0 = Not at all Trouble relaxin = Not at all Being so restless that it is hard to sit still: 0 = Not at all Becoming easily annoyed or irritable: 0 = Not at all Feeling afraid as if something awful might happen: 0 = Not at all Total ALEXIS-7 score (0-4 normal; 5-9 mild; 10-14 moderate; 15-21 severe): 0 Source: Developed by Drs. Hay Varela, Leonora Parsons, Viktor Giraldo and colleagues, with an educational sebastian from [employer]. ALEXIS-7 Assessment Billing ALEXIS-7 Assessment Tool: ALEXIS-7 Assessment 86909 Physical exam (Primary Care) Vital Signs: Last Vital Signs Temp 98 F 04/07/25 10:26 Pulse 79 04/07/25 10:26 Resp 14 04/07/25 10:26 BP 152/84 H 04/07/25 10:43 Pulse Ox 97 04/07/25 10:26 Oxygen Delivery Method Room Air 04/07/25 10:26 BMI result Body Mass Index 27.0 Tobacco/Smoking Status: Tobacco use Status Tobacco use date assessed 04/07/25 04/07/25 10:32 Patient Tobacco Use Status Never used Tobacco 04/07/25 10:25 e-Cigarette/Vaping Use Never Used 04/07/25 10:32 PHQ-9: PHQ-9 Score PHQ-9: Total score 0 04/07/25 10:47 Depression Screening Interpretation: Negative Thrive Assessment: Date of Thrive Assessment Date Thrive assessed 03/31/25 04/07/25 10:25 Currently or been in a relationship where the following occur: No concerns reported Const Orientation/consciousness: patient oriented x3 HENMT Ears: hearing grossly normal bilaterally Neck Thyroid: Thyroid normal Lymphatic: no lymphadenopathy noted Resp Auscultation: clear to auscultation bilaterally Cardio Rate: regular rate Rhythm: regular rhythm Heart sounds: S1 normal heart sound present and S2 normal heart sound present GI Inspection: Yes normal to inspection Palpation (GI): Soft to palpation and Other GI palpation findings present (nontender, no cva tenderness) Auscultation: normoactive bowel sounds Rectal Exam - Male: Yes deferred Skin General skin exam: no rashes or lesions noted Neuro General: patient oriented x3, gait normal and no focal motor deficits Office Procedures EKG Details: EKG today in office is sinus bradycardia at a rate of 58 beats per minute with nonspecific STT wave abnormalities. No prior study to compare.? LVH [id number], Complete Coding Level of Care Code New Pt Level 4 (20350) Add On Problem Visit Only Diagnoses HTN (hypertension) I10 Chest discomfort R07.89 Palpitation R00.2 Colon polyps K63.5 CPT Codes EKG - CPT: 56807-[id number], Complete ([id number]) Additional Codes PHQ-9 - 00469 - PHQ-9 Billing: Yes ([id number]) ALEXIS-7 Assessment Billing - ALEXIS-7 Assessment Tool: ALEXIS-7 Assessment [id number] ([id number]) Assessment & Plan Assessment & Plan (1) HTN (hypertension): Code(s): I10 - Essential (primary) hypertension Category: Medical Plan: We will start metoprolol given his palpitations and high blood pressure. Discussed risks and benefits and adverse effects of this medication. Short term follow up in a few weeks to be reassessed. (2) Chest discomfort: Code(s): R07.89 - Other chest pain Category: Medical Plan: EKG as listed above Stress test, echo and Holter monitor ordered. Chest x-ray ordered (3) Palpitation: Code(s): R00.2 - Palpitations Category: Medical Plan: As above (4) Colon polyps: Code(s): K63.5 - Polyp of colon Category: Medical Plan: Referral to GI Orders: Orders CA echo transthoracic complete Today I10 - Essential (primary) hypertension, R00.2 - Palpitations, R07.89 - Other chest pain Complete Blood Count Auto Diff Today I10 - Essential (primary) hypertension, K63.5 - Polyp of colon, R00.2 - Palpitations, R07.89 - Other chest pain Comprehensive [place]. Panel Fast Today I10 - Essential (primary) hypertension, K63.5 - Polyp of colon, R00.2 - Palpitations, R07.89 - Other chest pain ECG holter monitor 24 hour Today I10 - Essential (primary) hypertension, R00.2 - Palpitations, R07.89 - Other chest pain CA stress test Today I10 - Essential (primary) hypertension, R00.2 - Palpitations, R07.89 - Other chest pain Lipid Panel Today I10 - Essential (primary) hypertension, K63.5 - Polyp of colon, R00.2 - Palpitations, R07.89 - Other chest pain TSH reflex Free T4 Today I10 - Essential (primary) hypertension, K63.5 - Polyp of colon, R00.2 - Palpitations, R07.89 - Other chest pain Hemoglobin A1c Today I10 - Essential (primary) hypertension, K63.5 - Polyp of colon, R00.2 - Palpitations, R07.89 - Other chest pain, R73.01 - Impaired fasting glucose XR chest 2V Today I10 - Essential (primary) hypertension, R07.89 - Other chest pain Referrals Gastroenterology Referral K63.5 - Polyp of colon, Z12.11 - Encounter for screening for malignant neoplasm of colon Medications: New metoprolol succinate ER 25 mg PO DAILY 90 tabs 0RF
[2025-04-07 10:26] VITALS: BP 156/84; PULSE 79; RESP 14; TEMP 36.6; O2SAT 97; BMI 27.0
[2025-04-07 10:43] VITALS: BP 152/84
== END 2025-04-07 11:13 | disposition home or self-care (01) ==
LOC: HO.HMCFM 10:18
PROVIDERS: PCP Physician Assistant; Visit Provider Physician Assistant
DX: I10 Essential (primary) hypertension (principal); R07.89 Other chest pain; R00.2 Palpitations; K63.5 Polyp of colon

== ENCOUNTER 2025-04-07 10:16 | Outpatient (REF) | payer MEDICARE, SELFPAY ==
[2025-04-07 14:56] LABS: MANUAL DIFF FLAG NO
[2025-04-07 15:02] LABS: Hematocrit 50.7 % (42.0-52.0); Hemoglobin 16.2 g/dl (14.0-18.0); Imm Gran Abs Auto 0.01 X10*3/uL (0.00-0.03); Imm Gran Pct Auto 0.2 % (0.0-0.4); Lymphocytes Absolute Auto 1.0 X10*3/uL (1.2-4.9); Mean Corpuscular HGB Conc 32.0 g/dl (31.0-36.0); Mean Corpuscular Hemoglobin 28.8 pg (27.0-33.0); Mean Corpuscular Volume 90.2 fL (80.0-98.0); NRBC Abs Auto 0.000 X10*3/uL (0.0-0.012); NRBC Pct Auto 0.0 /100WBC (0.0-0.2); Platelet Count 225 X10*3/uL (160-400); Red Blood Count 5.62 X10*6/uL (4.60-5.80); White Blood Count 6.0 X10*3/uL (4.8-10.8)
[2025-04-07 15:21] LABS: Alanine Aminotransferase 48 U/L (0-40); Albumin Level 4.8 g/dL (3.5-5.0); Alkaline Phosphatase 74 U/L (39-117); Anion Gap 9 (12-20); Aspartate Amino Transferase 34 U/L (5-37); Blood Urea Nitrogen 19 mg/dL (9-16); Calcium 9.7 mg/dL (8.4-10.2); Carbon Dioxide 30 mmol/L (22-29); Chloride 106 mmol/L (96-108); Cholesterol 208 mg/dL (<200); Estimated Glomerular Filt Rate > 60; HDL Cholesterol 55 mg/dL (>40); Potassium 4.3 mmol/L (3.3-5.1); Sodium 141 mmol/L (135-145); Total Protein 7.4 g/dL (6.5-8.0); Triglycerides 174 mg/dL (<150)
== END 2025-04-07 10:17 | disposition home or self-care (01) ==
LOC: HO.WFDLDS 10:16
PROVIDERS: PCP Family Medicine; Visit Provider Physician Assistant
DX: I10 Essential (primary) hypertension (principal); R73.01 Impaired fasting glucose; K63.5 Polyp of colon; R00.2 Palpitations; R07.89 Other chest pain; Z13.31 Encounter for screening for depression; Z13.39 Encounter for screening examination for other mental health and behavioral disorders
CPT/HCPCS: 36415; 80053; 80061; 83036; 84443; 85025; 93005; 96127; 99202

== ENCOUNTER 2025-04-27 09:07 | Outpatient (REF) | payer MEDICARE, SELFPAY ==
[2025-04-27 12:30] LABS: PSA,Total (Free>4and<10) 8.16 ng/mL (0.00-4.00)
[2025-04-29 17:29] LABS: Free Prostate Spec Ag 1.2 ng/mL; Percent Free Prostate Spec Ag 13 % (calc) (>25)
== END 2025-04-27 09:08 | disposition home or self-care (01) ==
LOC: HO.WFDLDS 09:07
PROVIDERS: Visit Provider Urology
DX: C61 Malignant neoplasm of prostate (principal); Z12.5 Encounter for screening for malignant neoplasm of prostate
CPT/HCPCS: 36415; 84153; 84154